=== PATIENT | male | born 1955 | race African-American/Black ===

== ENCOUNTER 2017-04-06 00:26 | Emergency (ER) | payer BC, OTHER ==
[2017-04-06 00:32] VITALS: BP 132/98; PULSE 80; TEMP 98.3; BMI 30.1
--- NOTE | 2017-04-06 00:39 | PDOC ---
History of Present Illness - General Chief Complaint: Muscle Cramping Stated Complaint: BILAT LEG PAIN Time Seen by Provider: 04/06/17 00:34 History Source: Patient Exam Limitations: No Limitations - History of Present Illness Initial Comments: 04/06/17 00:37 This is a 61-year-old male who comes in complaining of bilateral calf pain and swelling. Patient denies any trauma or injury. Patient said that he has not been exercising more working no more. Patient denies any recent travel. Patient denies any DVT risk factors. Patient says he is otherwise healthy but does have a history of hypertension. Patient denies any shortness of breath chest pain or near syncope. PAST MEDICAL HISTORY:hypertension PAST SURGICAL HISTORY: no significant history FAMILY HISTORY: no pertinant history SOCIAL HISTORY: Pt lives with family and is employed. MEDICATIONS: reviewed ALLERGIES: As per nursing notes Review of Systems General: No fevers or chills, no weakness, no weight loss HEENT: No change in vision. No sore throat,. No ear pain CardioVascular: No chest pain or shortness of breath Respiratory:No cough, or wheezing. Gastrointestinal: no nausea, vomitting, diarrhea or constipation, No rectal bleeding Genitourinary: No dysuria, hematuria, or frequency Musculoskeletal: bilateral calf pain and swelling at what Neurologic: No headache, vertigo, dizziness or loss of consciousness Psychiatric: nor depression Skin: No rashes or easy bruising Endocrine: no increased thirst or abnormal weight change Allergic: no skin or latex allergy All other systems reviewed and normal GENERAL: The patient is awake, alert, and fully oriented, in no acute distress. HEAD: Normal with no signs of trauma. EYES: Pupils equal, round and reactive to light, extraocular movements intact, sclera anicteric, conjunctiva clear. EXTREMITIES: Bilateral lower extremities. There is some tenderness and swelling of the calves bilateral right however is greater than left. The calves are iotherwise soft bilatera; and there is no increased warmth, erythema or rash to the area. Neurovascular distal is intact. There is no tender palpable cord. There is no swelling of the knee. There is no swelling of the foot or ankles. NEUROLOGICAL: Normal speech, normal gait. grossly intact PSYCH: Normal mood, normal affect. SKIN: Warm, Dry, normal turgor, no rashes or lesions noted. Patient's ultrasound was negative for DVT bilateral Assessment and plan: This is a 61-year-old male who comes in complaining of some discomfort and swelling in his legs bilateral right greater than left. Patient was concerned that he may have a DVT even though he has no DVT risk factors or no history of DVT in the past. I did do a ultrasound bilateral which was negative for DVT. Patient was reassured and he was discharged home. Patient will follow-up with his primary care doctor for further evaluation and workup of the swelling and discomfort. Past History - Past Medical History Allergies/Adverse Reactions: Allergies Allergy/AdvReac Type Severity Reaction Status Date / Time No Known Allergies Allergy Verified 01/19/14 13:06 Home Medications: Ambulatory Orders Losartan Potassium [Cozaar -] 75 mg PO HS 01/19/14 COPD: No HTN: Yes - Suicide/Smoking/Psychosocial Hx Smoking History: Former smoker Have you smoked in the past 12 months: No Number of Cigarettes Smoked Daily: 0 If you are a former smoker, when did you quit?: 25 YEARS Information on smoking cessation initiated: No Hx Alcohol Use: No Drug/Substance Use Hx: No Substance Use Type: None *Physical Exam - Vital Signs Last Vital Signs Temp Pulse Resp BP Pulse Ox 98.3 F 80 14 132/98 98 04/06/17 00:28 04/06/17 00:28 04/06/17 00:28 04/06/17 00:28 04/06/17 00:28 *DC/Admit/Observation/Transfer Diagnosis at time of Disposition: Bilateral calf pain - Discharge Dispostion Disposition: HOME Condition at time of disposition: Good - Referrals Referrals: Robert Stewart MD [Primary Care Provider] - - Patient Instructions Additional Instructions: The ultrasound was negative for any blood clots. Tylenol or Motrin as needed for pain. Return to the emergency department immediately with ANY new, persistent or worsening symptoms. Continue any medications as previously prescribed by your physician. You should follow up with your primary doctor as soon as possible regarding today's emergency department visit. . Please make sure your doctor reviews the results of your emergency evaluation. Thank you for coming to the Emergency Department today for your care. It was a pleasure to see you today. Please note that your evaluation is INCOMPLETE until you follow-up with your doctor. - Post Discharge Activity
== END 2017-04-06 02:42 | disposition home or self-care (01) ==
LOC: FER 00:26
DX: M79.605 Pain in left leg (principal); M79.604 Pain in right leg; I10 Essential (primary) hypertension; Z87.891 Personal history of nicotine dependence
CPT/HCPCS: 93970-TC; 99282-25